=== PATIENT | male | born 1965 | race Caucasian/White ===

== ENCOUNTER 2020-02-11 18:32 | Emergency (ER) | payer OTHER ==
[~2020-02-11] VITALS: Ht 175.3 cm; Wt 82.7 kg
[2020-02-11 20:41] VITALS: BP 152/73
--- NOTE | 2020-02-11 20:55 | PHYS DOC ---
Past Medical History Past Medical History: No Pertinent History (MARA JONES APRN) Past Surgical History: No Surgical History (MARA JONES APRN) Smoking Status: Current Every Day Smoker Alcohol Use: Occasionally (MARA JONES APRN) General Adult EDM: Chief Complaint: ACCIDENTAL INGESTION HPI: HPI: Patient is a 54 year old male with no significant medical history who presents to the ED today to be evaluated after ingesting paint thinner accidentally. 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 He states he took a sip of the water and felt it had paint thinner. He states he was able to swallow a tiny amount of the water. Patient denies any symptoms right now. (MARA JONES APRN) Review of Systems: Review of Systems: Constitutional: Denies fever or chills. [] Eyes: Denies change in visual acuity. [] HENT: Denies nasal congestion or sore throat. [] Respiratory: Denies cough or shortness of breath. [] Cardiovascular: Denies chest pain or edema. [] GI: Reports accidental ingestion of paint thinner, denies abdominal pain, n ausea, vomiting, bloody stools or diarrhea. [] : Denies dysuria. [] Musculoskeletal: Denies back pain or joint pain. [] Integument: Denies rash. [] Neurologic: Denies headache, focal weakness or sensory changes. [] Endocrine: Denies polyuria or polydipsia. [] Lymphatic: Denies swollen glands. [] Psychiatric: Denies depression or anxiety. [] (MARA JONES APRN) Heart Score: Risk Factors: Risk Factors: DM, Current or recent (<one month) smoker, HTN, HLP, family history of CAD, obesity. Risk Scores: Score 0 - 3: 2.5% MACE over next 6 weeks - Discharge Home Score 4 - 6: 20.3% MACE over next 6 weeks - Admit for Clinical Observation Score 7 - 10: 72.7% MACE over next 6 weeks - Early Invasive Strategies (MARA JONES APRN) Physical Exam: PE: Constitutional: Well developed, well nourished, no acute distress, non-toxic appearance. [] HENT: Normocephalic, atraumatic, bilateral external ears normal, oropharynx moist, no oral exudates, nose normal. [] Eyes: PERRLA, EOMI, conjunctiva normal, no discharge. [] Neck: Normal range of motion, no tenderness, supple, no stridor. [] Cardiovascular:Heart rate regular rhythm, no murmur [] Lungs & Thorax: Bilateral breath sounds clear to auscultation [] Abdomen: Bowel sounds normal, soft, no tenderness, no masses, no pulsatile masses. [] Skin: Warm, dry, no erythema, no rash. [] Back: No tenderness, no CVA tenderness. [] Extremities: No tenderness, no cyanosis, no clubbing, ROM intact, no edema. [] Neurologic: Alert and oriented X 3, normal motor function, normal sensory function, no focal deficits noted. [] Psychologic: Affect normal, judgement normal, mood normal. [] (MARA JONES APRN) Current Patient Data: Vital Signs: Vital Signs Date Time Temp Pulse Resp B/P (MAP) Pulse Ox O2 Delivery O2 Flow Rate FiO2 02/11/20 20:41 98.7 90 18 152/73 (99) 99 Room Air 98.7 (MARA JONES APRN) EKG: EKG: [] (MARA JONES APRN) Radiology/Procedures: Radiology/Procedures: [] (MARA JONES APRN) Course & Med Decision Making: Course & Med Decision Making Pertinent Labs and Imaging studies reviewed. (See chart for details) This is a 54-year-old male patient who presents to the ED today stating he ingested painting accidentally. Patient has no symptoms. See HPI. We contacted poison control. They stated paint thinner does not get digested. They stated patient can be discharged to home. Patient was discharged to home. Return precautions provided. (MARA JONES APRN) Dragon Disclaimer: Dragon Disclaimer: This electronic medical record was generated, in whole or in part, using a voice recognition dictation system. (MARA JONES APRN) Departure Departure Impression: Primary Impression: Ingestion of corrosive chemical Qualified Codes: T54.94XA - Toxic effect of unspecified corrosive substance, undetermined, initial encounter Disposition: HOME, SELF-CARE Condition: STABLE Referrals: NON,STAFF (PCP) follow up with your doctor next week Patient Instructions: Nontoxic Ingestion Additional Instructions: Please follow-up with your primary care doctor in 1 to 2 weeks. Come back to the ED at any point symptoms worsen Justicifation of Admission Dx: Justifications for Admission: Justification of Admission Dx: N/A (MARA JNOES APRN) Attending Signature Attending Signature I was personally available for consult in the emergency department. I have reviewed the chart and agree with the documentation as recorded by the LISANDRO including the assessment, treatment plan and disposition. (RICHARD DOUGLAS DO) MARA JONES APRN Feb 11, 2020 20:55 RICHARD DOUGLAS DO Feb 12, 2020 06:38
== END 2020-02-11 20:57 | disposition home or self-care (01) ==
LOC: ER 18:32
DX: T54.91XA Toxic effect of unspecified corrosive substance, accidental (unintentional), initial encounter (principal); F17.200 Nicotine dependence, unspecified, uncomplicated; Y92.89 Other specified places as the place of occurrence of the external cause
CPT/HCPCS: 99281